=== PATIENT | male | born 1960 | race Caucasian/White ===

== ENCOUNTER 2018-07-20 19:30 | Emergency (ER) | payer BC ==
[2018-07-20 19:40] VITALS: BP 141/83; PULSE 78; TEMP 98.2; BMI 21.1
--- NOTE | 2018-07-20 19:41 | PDOC ---
Rapid Medical Evaluation Chief Complaint: Pain Time Seen by Provider: 07/20/18 19:38 Medical Evaluation: 07/20/18 19:38 CC: Abdominal pain HPI: Pt is an 57 YO male who complains of "I think I have a hernia." Pt points to the left scrotal area. Denies pain. Pain is a 0/10. I have performed a brief in- person evaluation of this patient. Pertinent Physical Findings: Skin: Clear Lungs: Clear Heart: RRR Abdomen: no pain upon palpation; no CVAT Neuro: Alert Psych: Appropriate affect The patient will proceed to: Main ED for further evaluation. Discharge Disposition - Diagnosis Inguinal hernia Qualifiers: Obstruction and gangrene presence: without obstruction or gangrene Laterality: unilateral Recurrence: non-recurrent Qualified Code(s): K40.90 - Unilateral inguinal hernia, without obstruction or gangrene, not specified as recurrent - Referrals - Patient Instructions - Post Discharge Activity
--- NOTE | 2018-07-20 20:33 | PDOC ---
History of Present Illness - General Chief Complaint: Pain Stated Complaint: LEG PAIN Time Seen by Provider: 07/20/18 19:38 History Source: Patient Exam Limitations: No Limitations - History of Present Illness Initial Comments: 07/20/18 20:31 HISTORY OF PRESENT ILLNESS: This is a 57-year-old male who denies medical history presents emergency Department with right groin mass for the past 2 months. Patient states she could not find time to have this evaluated until today. He denies any fevers, chills, difficulty moving his bowels, diarrhea, pain. No recent travel or sick contacts. PAST MEDICAL HISTORY: Denies past medical history SURGICAL HISTORY: Denies ALLERGIES: No known drug allergies REVIEW OF SYSTEMS General/Constitutional: Denies fever or chills. Denies weakness, weight change. HEENT: Denies change in vision. Denies ear pain or discharge. Denies sore throat. Cardiovascular: Denies chest pain or shortness of breath. Respiratory: Denies cough, wheezing, or hemoptysis. Gastrointestinal: Denies nausea, vomiting, diarrhea or constipation. Denies rectal bleeding. Genitourinary: Denies dysuria, frequency, or change in urination. Musculoskeletal: Denies joint or muscle swelling or pain. Denies neck or back pain. Skin and breasts: Denies rash or easy bruising. Neurologic: Denies headache, vertigo, loss of consciousness, or loss of sensation. Psychiatric: Denies depression or anxiety. Endocrine: Denies increased thirst. Denies abnormal weight change. Hematologic/Lymphatic: Denies anemia, easy bleeding, or history of blood clots. Allergic/Immunologic: Denies hives or skin allergy. Denies latex allergy. PHYSICAL EXAM General Appearance: Well-appearing, appropriately dressed. No apparent distress , no intoxication. HEENT: EOMI, PERRLA, normal ENT inspection, normal voice, TMs normal, pharynx normal. No conjunctival pallor. No photophobia, scleral icterus. Neck: Supple. Trachea midline. No tenderness, rigidity, carotid bruit, stridor , lymphadenopathy, or thyromegaly. Respiratory/Chest: Lungs CTAB. No shortness of breath, chest tenderness, respiratory distress, accessory muscle use. No crackles, rales, rhonchi, stridor , wheezing, dullness Cardiovascular: RRR. S1, S2. No JVD, murmur, bradycardia, tachycardia. Vascular Pulses: Dorsalis-Pedis (R): 2+, Dorsalis-Pedis (L): 2+ Gastrointestinal/Abdominal: Normal bowel sounds. Abdomen soft, non-distended. No tenderness or rebound tenderness. No organomegaly, pulsatile mass, guarding, hernia, hepatomegaly, splenomegaly. Soft mobile palpable mass noted to the left inguinal region. No bowel sounds present and mass. Able to reduce mass which we presents within seconds of reduction. No palpation of hernia through inguinal canal. Lymphatic: No adenopathy, tenderness. Musculoskeletal/Extremities: Normal inspection. FROM of all extremities, normal capillary refill. Pelvis Stable. No CVA tenderness. No tenderness to extremities, pedal edema, swelling, erythema or deformity. Integumentary: Appropriate color, dry, warm. 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 Fully oriented, alert. Appropriate mood/affect. Motor strength 5/5. No appreciable EOM palsy, facial droop or sensory deficit. Past History - Past Medical History Allergies/Adverse Reactions: Allergies Allergy/AdvReac Type Severity Reaction Status Date / Time No Known Allergies Allergy Verified 07/20/18 19:40 Home Medications: Ambulatory Orders NK [No Known Home Medication] 07/20/18 COPD: No - Suicide/Smoking/Psychosocial Hx Smoking History: Never smoked *Physical Exam - Vital Signs Last Vital Signs Temp Pulse Resp BP Pulse Ox 98.2 F 78 18 141/83 98 07/20/18 19:38 07/20/18 19:38 07/20/18 19:38 07/20/18 19:38 07/20/18 19:38 Medical Decision Making - Medical Decision Making 07/20/18 20:31 A/P: 57-year-old male with painless mass to the left inguinal area Soft mobile palpable mass noted to the left inguinal area c/w hernia easily reducible No palpation of hernia through inguinal ring Testicular exam is within normal limits Penile exam is within normal limits Patient with inguinal hernia without incarceration. As patient is asymptomatic with the exception of palpable hernia I will discharge home to follow-up with surgeon for reevaluation. Was explained to the patient that this is an elective surgery and he would have to discuss his options with the surgeon going forward. Patient verbalizes understanding of discharge instructions. *DC/Admit/Observation/Transfer Diagnosis at time of Disposition: Inguinal hernia Qualifiers: Obstruction and gangrene presence: without obstruction or gangrene Laterality: unilateral Recurrence: non-recurrent Qualified Code(s): K40.90 - Unilateral inguinal hernia, without obstruction or gangrene, not specified as recurrent - Discharge Dispostion Disposition: HOME Condition at time of disposition: Stable Decision to Admit order: No - Referrals Referrals: Nicola Pleitez MD [Staff Physician] - - Patient Instructions Printed Discharge Instructions: Groin Hernia -- Adult Additional Instructions: You've be given a referral for a general surgeon. Please call the surgeon for follow-up and potential repair. Return to emergency department immediately for severe pain, nausea, vomiting, inability to move your bowels, or any other concerns. Thank you very much for choosing us to provide your emergent health care needs. - Post Discharge Activity
== END 2018-07-20 20:49 | disposition home or self-care (01) ==
LOC: JER 19:30
DX: K40.90 Unilateral inguinal hernia, without obstruction or gangrene, not specified as recurrent (principal)
CPT/HCPCS: 99281-25; 99283-25

== ENCOUNTER 2018-08-14 09:22 | Day surgery (SDC) | payer BC ==
[2018-08-11 11:00] VITALS: BMI 21.9
[2018-08-14] MEDS ORDERED: LIDOCAINE HCL 1%, 10 MG/ML (20ML VIAL) ONE (10:58)
[2018-08-14] MEDS ORDERED: BUPIVACAINE HCL/PF 0.5% (5MG/ML) 10 ML VIAL ONE (10:58)
[2018-08-14] MEDS ORDERED: PROPOFOL 20 ML ONE (11:09)
[2018-08-14] MEDS ORDERED: fentaNYL CITRATE 250 MCG/5 ML VIAL ONE (11:09)
[2018-08-14] MEDS ORDERED: MIDAZOLAM HCL 2 MG/2 ML SINGLE DOSE VIAL ONE (11:10)
[2018-08-14] MEDS ORDERED: KETOROLAC TROMETHAMINE 30 MG/1 ML VIAL ONE (11:10)
[2018-08-14] MEDS ORDERED: SODIUM CHLORIDE 0.9% P/F 10 ML VIAL IJ ONE (11:10)
[2018-08-14] MEDS ORDERED: LIDOCAINE HCL/PF 2% SDV 5ML VIAL ONE (11:10)
[2018-08-14] MEDS ORDERED: ceFAZolin SODIUM 1 GM VIAL ONE (11:10)
[2018-08-14] MEDS ORDERED: DEXAMETHASONE SOD PHOSPHATE 4 MG/1 ML VIAL ONE (11:10)
--- NOTE | 2018-08-14 11:25 | HP ---
History & Physical Update - History History: No Change - Physical Physical: No Change - Assessment Assessment: No Change - Plan Plan: No Change (patient presents for elecvite repair of his left inguinal hernia. no changes since visit with Dr Roman on 07/31/18)
[2018-08-14] MEDS ORDERED: oxyCODONE HCL 5 MG TABLET PO PRN (11:32)
[2018-08-14] MEDS ORDERED: ONDANSETRON 4 MG/2 ML VIAL IVPUSH PRN (11:32)
[2018-08-14] MEDS ORDERED: LACTATED RINGERS SOLUTION 1,000 ML IV SCH (11:45)
[2018-08-14] MEDS ORDERED: LIDOCAINE HCL 1%, 10 MG/ML (50 mL VIAL) IJ ONE ×2 (12:03)
[2018-08-14] MEDS ORDERED: BUPIVACAINE HCL/PF 0.5% (5MG/ML) 10 ML VIAL IJ ONE ×2 (12:03)
--- NOTE | 2018-08-14 13:40 | OP ---
Operative Note - Note: Operative Date: 08/14/18 Pre-Operative Diagnosis: left inguinal Hernia Operation: Left inguinal hernia repair with mesh Post-Operative Diagnosis: Same as Pre-op Surgeon: Nicola Pleitez Forestry Tree Pruner: Irais Allison Anesthesiologist/METAL RECLAMATION KETTLE TENDER: Arnaud Watson Anesthesia: Local, MAC Estimated Blood Loss (mls): 15 Fluid Volume Replaced (mls): 500 Operative Report Dictated: Yes
--- NOTE | 2018-08-14 13:41 | SURG ---
Surgery Skirt Maker Note Skirt Maker: Irais Allison PA-C Date of Service: 08/14/18 Diagnosis: left inguinal hernia Procedure: Left inguinal hernia repair with mesh I was present for the entirety of the operative procedure. For further detail, please refer to operative report. Visit type - Case Type Case Type: Scheduled - Emergency Emergency Visit: No - New patient This patient is new to me today: Yes Date on this admission: 08/14/18
[2018-08-14 14:46] VITALS: BP 134/92; PULSE 83; TEMP 97.4
--- NOTE | 2018-08-15 18:32 | PATH ---
Surgical Pathology Report Patient Name: SYDNEE BOSCH [facility]. Rec. #: [id number] /Age/Gender: 1960 (Age: 57) / M Account: [id number] Location: [facility] SURGICAL Taken: 08/14/2018 Received: 08/14/2018 Reported: 08/15/2018 Physicians: Nicola Pleitez MD Specimen(s) Received HERNIA SAC Clinical History Left inguinal hernia Final Diagnosis HERNIA SAC, EXCISION: CONSISTENT WITH HERNIA SAC. Electronically Signed Madhu Barber M.D. Gross Description Received in formalin labeled "hernia sac," is a 3.1 x 2.0 x 1.1 cm campos-pink, saccular portion of fibromembranous tissue, consistent with a hernia sac. Operational Communication Chief sections are submitted in one cassette. /08/14/2018 saudi/08/14/2018
--- NOTE | 2018-08-16 10:12 | OP ---
DATE OF OPERATION: 08/14/2018 PREOPERATIVE DIAGNOSIS: Left inguinal hernia. POSTOPERATIVE DIAGNOSIS: Left inguinal hernia. PROCEDURE: Repair, left inguinal hernia, with mesh. SURGEON: Nicola Pleitez MD SLURRY MAN: Irais Allison PA-C ANESTHESIA: General. OPERATIVE FINDINGS: There was an indirect left inguinal hernia. The rest of the findings were unremarkable. PROCEDURE: The patient was placed on the operating room table in the supine position and after the induction of general anesthesia the patient's left groin was prepped with ChloraPrep and draped in sterile fashion. A timeout was taken and a left transverse groin incision was made with a scalpel and taken down through skin and subcutaneous tissue and Melissa fascia. The external oblique fascia was opened proximally and distally through the external ring in the direction of its fibers. The cord structures and nerve were elevated at the level of the pubic tubercle and a Ramiro drain placed around them for retraction and identification purposes. The indirect hernia sac was identified within the substance of the cord and was bluntly dissected up to the internal ring. The sac was empty and high ligation was carried out with 2-0 Vicryl suture and redundant sac excised and sent for pathological examination. Next a piece of Parietex ProGrip mesh was fashioned into the inguinal canal and anchored to the pubic tubercle, shelving edge and conjoint tendon, respectively, with interrupted 2-0 Prolene. A keyhole was created for the cord structures and the tails of the mesh brought above the level of the internal ring and crossed there and anchored with interrupted 2-0 Prolene. Hemostasis was checked for and noted to be good and then the wound was copiously irrigated with sterile saline. The cord structures and nerve were returned to their normal anatomic position and the external oblique fascia closed over them recreating the external ring using continuous 2-0 Vicryl. Melissa fascia was reapproximated with interrupted 2-0 Vicryl, the deep dermis with interrupted 3-0 Vicryl and the skin edges with 4-0 Monocryl in a subcuticular continuous fashion. Steri-Strips, dry sterile dressings and Tegaderm dressing were placed and the procedure terminated at this point. The patient aroused from general anesthesia and transferred to the postanesthesia care unit in stable condition awake and alert. Estimated blood loss: 15 mL. Replacement: Crystalloid. Drains: None. Specimens: Hernia sac to Pathology. I, Nicola Pleitez MD was physically present in the operating room from the time the patient was placed on the operating room table until he was transferred to the postanesthesia care unit in my accompaniment. Nicola Pleitez MD [id number] MTDD
== END 2018-08-14 15:50 | disposition home or self-care (01) ==
LOC: JASU-SURG 09:22
PROVIDERS: ATTEND Surgery
PROC: 0YU60JZ Supplement Left Inguinal Region with Synthetic Substitute, Open Approach (ICD-10-PCS; principal; 2018-08-14 11:00)
DX: K40.90 Unilateral inguinal hernia, without obstruction or gangrene, not specified as recurrent (principal)
CPT/HCPCS: 88302-TC; 94760